=== PATIENT | female | born 1975 | race Caucasian/White ===

== ENCOUNTER 2021-08-20 13:02 | Emergency (ER) | payer OTHER ==
[2021-08-20] MEDS ORDERED: Lidocaine 1% 4 ML ONE (14:00)
[2021-08-20] MEDS ORDERED: Propofol 200 MG/20 ML SDV ONE (14:00)
[2021-08-20] MEDS ORDERED: fentaNYL 100 MCG/2 ML SDV ONE (14:28)
[2021-08-20] MEDS ORDERED: fentaNYL 100 MCG/2 ML SDV IVPUSH ONE (15:28)
[2021-08-20] MEDS ORDERED: Acetaminophen/HYDROcodone 325-5 MG Tab PO ONE (15:53)
[2021-08-20] MEDS ORDERED: Orphenadrine 100 MG Tab.ER PO ONE (15:53)
== END 2021-08-20 15:30 | disposition home or self-care (01) ==
LOC: JD.ED 13:02
DX: S82.392A Other fracture of lower end of left tibia, initial encounter for closed fracture (principal); S82.832A Other fracture of upper and lower end of left fibula, initial encounter for closed fracture; S93.05XA Dislocation of left ankle joint, initial encounter; F17.210 Nicotine dependence, cigarettes, uncomplicated; W18.40XA Slipping, tripping and stumbling without falling, unspecified, initial encounter; Y92.009 Unspecified place in unspecified non-institutional (private) residence as the place of occurrence of the external cause
CPT/HCPCS: 27840; 73590; 73600; 99283; J2704; J3010; 01462; 27842; 29515; 99140; 99284